=== PATIENT | female | born 1990 | race Caucasian/White ===

== ENCOUNTER 2024-04-06 21:40 | Inpatient (IN) ==
[2024-04-06] MEDS ORDERED: OXYTOCIN 30 UNITS/NSS 30 UNITS/500 ML BAG IV PRN (22:15)
[2024-04-06] MEDS ORDERED: LIDOCAINE 1% LOCAL 20 ML VIAL INFIL PRN (22:15)
--- NOTE | 2024-04-06 22:32 | History & Physical Report ---
Date of Service April 06, 2024 History of Present Illness Chief Complaint: ruptured membranes Primary Care Provider: Vera Dean 33 F P0100 at 38.5 weeks presents with SROM clear fluid and onset of contractio ns. GBS is positive. Allergies Allergy/AdvReac Type Severity Reaction Status Date / Time Sulfa (Sulfonamide Allergy SWELLING Verified 04/06/24 21:59 Antibiotics) sulfamethoxazole Allergy SWELLING Verified 04/06/24 21:59 trimethoprim Allergy SWELLING Verified 04/06/24 21:59 Home Medications Medication Instructions Recorded Confirmed Type calcium 100 mg capsule 125 mg PO 04/06/24 History ferrous sulfate 325 mg (65 mg 325 mg PO DAILY 04/06/24 04/06/24 History iron) tablet (Iron (ferrous sulfate)) vits no.124-ferrous fum 1 tab PO DAILY 04/06/24 04/06/24 History 27 mg iron-folic acid 800 mcg tablet ( Vitamin) Patient History Surgical History S/P wisdom tooth extraction Family History Grandmother (Maternal) Lung cancer Social History Smoking Status: Never smoker Do You Dip or Chew Tobacco: No; Hx Alcohol Use: No Hx Substance Use: No Preferred Language: Serbian Communication Ability: Effective Setup Operator Required: No Beliefs That Will Affect Care: None marital status: marital status details: Angel (37) [phone] Current Living Situation: Spouse Current Living Situation Comment: lives with spouse, 1 dog. 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 GBS positive Review of Systems All systems reviewed & are unremarkable except as noted in HPI & below Physical Exam Constitutional: WD/WN, vitals as above Eyes: PERRL, conjunctivae normal, anicteric sclerae Respiratory: normal respiratory effort, lungs clear to auscultation Cardiovascular: Rate/Rhythm: regular rate and regular rhythm Gastrointestinal (Abdomen): Inspection/Auscultation: abdomen normal to inspection Musculoskeletal: Extremities: extremities normal to inspection Skin: no rashes, warm and dry Neurologic: patellar DTR's 2+ bilat, sensation intact Psychiatric: A+Ox3, euthymic affect Genitourinary: Manual OB Exam: + cervical dilation 4 cm, + cervical effacement 90%, + station -2 and + amniotic fluid clear and nitrazine positive OB Exam Monitor Tracing: + external FHT monitor used, + external uterine monitor used, + category I and + normal FHT variability Results & Data Vital Signs (Past 12 Hours) Vital Signs Pulse BP 04/06/24 21:56 97 H 119/77 Code Status & VTE Plan VTE Prophylaxis Plan VTE Prophylaxis will be ordered: No Monitoring External Monitor Cat 1
[2024-04-06] MEDS: LACTATED RINGER'S 1,000 ML IV PRN (22:52)
[2024-04-06] MEDS: PENICILLIN GK 6 MU in DEXTROSE 5% 250 ML IV STA (22:57)
[2024-04-06] MEDS ORDERED: ePHEDrine sulfate 50 MG/ML AMP IV PRN (23:09)
[2024-04-06] MEDS ORDERED: LIDOCAINE 2% MPF LOCAL 5 ML VIAL EPI PRN (23:09)
[2024-04-06] MEDS ORDERED: NALOXONE HCL 0.4 MG/1 ML VIAL/CARP IV PRN (23:09)
[2024-04-06] MEDS ORDERED: NALOXONE HCL 1 MG in SODIUM CHLORIDE 0.9% 1,000 ML IV PRN (23:09)
[2024-04-06] MEDS ORDERED: NALBUPHINE HCL 5 MG in SYRINGE 0 ML IV PRN (23:09)
[2024-04-06] MEDS ORDERED: fentaNYL citrate PF 100 MCG/2 ML VIAL EPI PRN (23:09)
[2024-04-06] MEDS ORDERED: BUPIVACAINE 0.25% PF 30 ML VIAL EPI PRN (23:09)
[2024-04-06] MEDS ORDERED: diphenhydrAMINE 50 MG/ML VIAL IV PRN (23:09)
[2024-04-06] MEDS ORDERED: SODIUM CHLORIDE 0.9% PF INJ 10 ML VIAL EPI PRN (23:09)
[2024-04-06] MEDS ORDERED: ROPIVACAINE 0.5% PF 5 MG/ML 20 ML VIAL EPI PRN (23:09)
--- NOTE | 2024-04-06 23:09 | Anesthesiology Consultation ---
Date of Service April 06, 2024 Assessment & Plan Chart Review Chart Review: Acceptable Risk for Labor Epidural Consults Requested none History Height/Weight Height: 5 ft 4 in Weight: 72.575 kg Allergies Allergy/AdvReac Type Severity Reaction Status Date / Time Sulfa (Sulfonamide Allergy SWELLING Verified 04/06/24 21:59 Antibiotics) sulfamethoxazole Allergy SWELLING Verified 04/06/24 21:59 trimethoprim Allergy SWELLING Verified 04/06/24 21:59 Medications Home Medications Medication Instructions Recorded Confirmed Last Taken calcium 100 mg capsule 125 mg PO 04/06/24 04/06/24 08:00 ferrous sulfate 325 mg (65 mg 325 mg PO DAILY 04/06/24 04/06/24 04/05/24 08:00 iron) tablet (Iron (ferrous sulfate)) vits no.124-ferrous fum 1 tab PO DAILY 04/06/24 04/06/24 04/06/24 08:00 27 mg iron-folic acid 800 mcg tablet ( Vitamin) Active Medications Generic Name Dose Route Start Last Admin Trade Name Freq PRN Reason Stop Dose Admin Lactated Ringer's 1,000 mls @ 125 mls/hr 04/06/24 22:15 04/06/24 22:52 Lr IV 04/08/24 22:14 999 mls/hr .Q8H PRN Administration L&D Protocol Protocol Penicillin G Potassium 6 mu/ 262 mls @ 262 mls/hr 04/06/24 22:15 04/06/24 22:57 Dextrose IV 04/06/24 23:14 262 mls/hr NOW STA Administration Past Family History Family History Grandmother (Maternal) Lung cancer Past Surgical History Surgical History S/P wisdom tooth extraction Social History Smoking Status: Never smoker Do You Dip or Chew Tobacco: No Hx Alcohol Use: No Hx Substance Use: No substance use type: does not use Physical Exam Vital Signs Last Vital Signs Temp 36.8 C 04/06/24 22:01 Pulse 97 H 04/06/24 22:01 Resp 18 04/06/24 22:01 BP 119/77 04/06/24 22:01 Constitutional WD/WN, vitals as above Eyes PERRL, conjunctivae normal, anicteric sclerae Respiratory normal respiratory effort, lungs clear to auscultation Cardiovascular Rate/Rhythm: regular rate and regular rhythm Gastrointestinal (Abdomen) Inspection/Auscultation: abdomen normal to inspection Musculoskeletal Extremities: extremities normal to inspection Skin no rashes, warm and dry Neurologic patellar DTR's 2+ bilat, sensation intact Psychiatric A+Ox3, euthymic affect Genitourinary Manual OB Exam: + cervical dilation + 4 cm, + cervical effacement + 90%, + station + -2 and + amniotic fluid + clear and + nitrazine positive OB Exam Monitor Tracing: + external FHT monitor used, + external uterine monitor used, + category I and + normal FHT variability
[2024-04-06 23:10] LABS: Hematocrit (blood only) 36.7 % (37.0-47.0); Hemoglobin 12.6 g/dl (12.0-16.0); Mean Corpuscular Hemoglobin 30.3 pg (25.0-34.0); Mean Corpuscular Hgb Conc 34.3 g/dL (32.0-36.0); Mean Corpuscular Volume 88.2 fL (80.0-100.0); Mean Platelet Volume 11.5 fL (9.4-12.4); Platelet Count 255 K/uL (130-400); RDW Coefficient of Variation 13.4 % (11.5-14.5); RDW Standard Deviation 43.5 fL (36.4-46.3); Red Blood Count 4.16 M/uL (4.20-5.40); White Blood Count 16.02 K/ul (4.8-10.8)
[2024-04-06] MEDS: fentANYL 2 MCG/ML BUPIVacaine 0.125%-NSS 100ML BAG ONE (23:44)
[2024-04-06] MEDS: LIDOCAINE 2%/EPINEPHRINE 1:200,000 20 ML PF ONE (23:44)
[2024-04-06] MEDS: ePHEDrine sulfate 50 MG/ML AMP ONE (23:59)
[2024-04-07] MEDS: BUPIVACAINE 0.25% PF 30 ML VIAL ONE (00:05)
[2024-04-07] MEDS: SODIUM CHLORIDE 0.9% PF INJ 10 ML VIAL ONE (00:05)
[2024-04-07] MEDS: PENICILLIN GK 3 MU in DEXTROSE 5% 100 ML IV PRN (02:24)
[2024-04-07] MEDS: CALCIUM CARBONATE 500 MG CHEWABLE TAB PO PRN (05:12)
[2024-04-07] MEDS: ONDANSETRON INJ 2 MG/ML 2 ML VIAL IV STA (06:25)
[2024-04-07] MEDS: OXYTOCIN 30 UNITS/NSS 30 UNITS/500 ML BAG IV PRN (06:31)
[2024-04-07] MEDS: fentANYL 2 MCG/ML BUPIVacaine 0.125%-NSS 100ML BAG EPI PRN (07:13)
[2024-04-07] MEDS: METHYLERGONOVINE MALEATE 0.2 MG/ML AMP ONE (12:47)
[2024-04-07] MEDS ORDERED: OXYTOCIN 30 UNITS/NSS 30 UNITS/500 ML BAG IV PRN (13:02)
[2024-04-07] MEDS ORDERED: HYDROCORTISONE ACETATE 25 MG SUPP PR PRN (13:02)
[2024-04-07] MEDS ORDERED: bisacodyL 10 MG SUPP PR PRN (13:02)
[2024-04-07] MEDS ORDERED: ACETAMINOPHEN W/CODEINE #3 1 TAB PO PRN (13:02)
[2024-04-07] MEDS ORDERED: oxyCODONE/ACETAMINOPHEN 5mg/325mg TAB PO PRN (13:02)
--- NOTE | 2024-04-07 13:10 | Delivery Summary ---
Vaginal Delivery Summary Date of Service April 07, 2024 Vaginal Delivery Summary Patient is a 2 para one 33-year-old white female. Followed for care and delivery. Admitted in active labor at 38 weeks 6 days who is group B strep positive. Received penicillin for this. 4 doses. Went to full dilatation pushed. Pushed for approximately 3 and half hours. Stat a live female via direct occiput anterior position over an intact perineum. After delivery of the head infant was suctioned through the mouth and the nose. There was a truncal cord around the infant. The was delivered with the cord intact. Following delivery of the infant the cord was allowed to pulse for 1 full minute. Cord was then clamped and cut. Cord blood was taken. With IV Pitocin running the placenta was removed intact. IM Methergine was used following delivery of the placenta. Inspection of the perineum revealed superficial lacerations only. Bilateral periurethral lacerations which were repaired with 3-0 chromic. And a midline vaginal laceration at 6:00 which was also repaired with 3-0 chromic following this hemostasis was good patient Toller procedure well the bladder was catheterized and emptied. Quantitative blood loss 144 mL.
--- NOTE | 2024-04-07 13:23 | Anesthesia Procedure Note ---
Date of Service April 07, 2024 Anesthesia Post Epidural Note Vital Signs Vital Signs: Temp Pulse Resp BP Pulse Ox 36.5 C 75 20 133/68 100 04/07/24 11:21 04/07/24 13:10 04/07/24 11:21 04/07/24 13:10 04/07/24 12:47 Notes Mental Status: alert / awake / arousable and participated in evaluation Nausea / Vomiting: adequately controlled Pain: adequately controlled Airway Patency, RR, SpO2: stable & adequate BP & HR: stable & adequate Hydration State: stable & adequate Neuraxial Anesthesia: was administered and sensory block is resolving Anesthetic Complications: no major complications apparent Epidural: Removed without complications and With tip intact
[2024-04-07] MEDS: IBUPROFEN 600 MG TAB PO PRN (14:12)
[2024-04-07] MEDS: BENZOCAINE 20% SPRY 85 APPLN/85 GM CAN EXT PRN (14:12)
[2024-04-07] MEDS: METHYLERGONOVINE MALEATE 0.2 MG/ML AMP IM ONE (15:24)
[2024-04-07] MEDS: DIPHTHER/TETAN/PERTUS Vaccine (Tdap, Adol/Adult) 0.5mL IM ONE (15:27)
[2024-04-07] MEDS: LIDOCAINE 2%/EPINEPHRINE 1:200,000 20 ML PF EPI STA (15:27)
[2024-04-07] MEDS: SODIUM CHLORIDE 0.9% PF INJ 10 ML VIAL EPI STA (15:27)
[2024-04-07] MEDS: fentaNYL citrate PF 100 MCG/2 ML VIAL EPI STA (15:27)
[2024-04-07] MEDS: BUPIVACAINE 0.25% PF 30 ML VIAL EPI STA (15:27)
[2024-04-07] MEDS: ACETAMINOPHEN 325 MG TAB PO PRN (17:15)
[2024-04-07] MEDS: DOCUSATE SODIUM 100 MG CAP PO SCH (20:02)
[2024-04-08 07:28] LABS: Hematocrit (blood only) 33.1 % (37.0-47.0); Hemoglobin 10.8 g/dl (12.0-16.0); Mean Corpuscular Hemoglobin 30.7 pg (25.0-34.0); Mean Corpuscular Hgb Conc 32.6 g/dL (32.0-36.0); Mean Platelet Volume 11.9 fL (9.4-12.4); Platelet Count 191 K/uL (130-400); RDW Coefficient of Variation 14.1 % (11.5-14.5); Red Blood Count 3.52 M/uL (4.20-5.40); White Blood Count 18.31 K/ul (4.8-10.8)
[2024-04-08 09:04] VITALS: BP 107/66; PULSE 70; RESP 16; TEMP 97.9; O2SAT 100
[2024-04-08] MEDS: PRENATAL VITAMIN 1 TAB PO SCH (09:30)
[2024-04-08] MEDS ORDERED: bisacodyL 5 MG TABEC PO SCH (20:00)
== END 2024-04-08 17:50 | disposition home or self-care (01) | DRG 807 ==
LOC: OPB 21:40 → 4S1 21:41 → 4E2 04-07 16:09